=== PATIENT | male | born 2000 | race Caucasian/White ===

== ENCOUNTER 2022-05-03 16:39 | Emergency (ER) | payer OTHER ==
[~2022-05-03] VITALS: Ht 188 cm; Wt 72.7 kg
[2022-05-03 21:09] VITALS: BP 118/60
== END 2022-05-03 21:10 | disposition home or self-care (01) ==
LOC: EMS 16:45
DX: S13.4XXA Sprain of ligaments of cervical spine, initial encounter (principal); S16.1XXA Strain of muscle, fascia and tendon at neck level, initial encounter; S10.91XA Abrasion of unspecified part of neck, initial encounter; F10.20 Alcohol dependence, uncomplicated; V43.62XA Car passenger injured in collision with other type car in traffic accident, initial encounter; Y93.89 Activity, other specified; Y92.89 Other specified places as the place of occurrence of the external cause; Y99.8 Other external cause status
CPT/HCPCS: 72040; 72070; 99284; Z7502